=== PATIENT | male | born 1945 | race Caucasian/White ===

== ENCOUNTER → 2016-04-17 10:51 | Emergency (ER) | payer MEDICAID, OTHER ==
[~2016-04-17] VITALS: Ht 165.1 cm; Wt 75.3 kg
[~2016-04-17 10:51] MED LIST: cloNIDine HCL 0.1 MG TAB PO ONE
[2016-04-17 13:48] VITALS: BP 155/98
== END | disposition home or self-care (01) ==
LOC: ER 10:51
DX: T18.128A Food in esophagus causing other injury, initial encounter (principal); J45.909 Unspecified asthma, uncomplicated; E78.5 Hyperlipidemia, unspecified; I10 Essential (primary) hypertension; N40.0 Benign prostatic hyperplasia without lower urinary tract symptoms; Z86.73 Personal history of transient ischemic attack (TIA), and cerebral infarction without residual deficits; X58.XXXA Exposure to other specified factors, initial encounter; Y93.9 Activity, unspecified; Y92.89 Other specified places as the place of occurrence of the external cause; Y99.8 Other external cause status; Z88.0 Allergy status to penicillin

== ENCOUNTER 2022-12-26 14:07 | Emergency (ER) | payer OTHER, MEDICAID ==
[~2022-12-26] VITALS: Ht 160 cm; Wt 69.7 kg
[2022-12-26 17:01] VITALS: BP 111/66; PULSE 63; RESP 18; TEMP 98.2; O2SAT 97
== END 2022-12-26 17:03 | disposition left against medical advice (07) ==
LOC: ER 14:07
DX: Z46.6 Encounter for fitting and adjustment of urinary device (principal); Z53.21 Procedure and treatment not carried out due to patient leaving prior to being seen by health care provider